=== PATIENT | female | born 1950 | race African-American/Black ===

== ENCOUNTER 2017-12-08 03:30 | Emergency (ER) | payer OTHER, MEDICAID ==
[~2017-12-08] VITALS: Ht 165.1 cm; Wt 49.0 kg
[2017-12-08] MEDS ORDERED: CLONIDINE 0.1MG TABLET PO ONE (07:15)
[2017-12-08 07:47] LABS: BASOPHILS % 0.5 % (0.0-2.0); EOSINOPHILS % 1.3 % (0.0-5.0); HEMOGLOBIN. 12.6 g/dL (12.0-16.0); LYMPHOCYTES % 24.3 % (20.0-50.0); MEAN CORPUSCULAR HEMOGLOBIN 31.5 pg (28.0-32.0); MEAN CORPUSCULAR VOLUME 92.5 fL (81.0-99.0); MEAN PLATELET VOLUME 7.4 fl (7.4-10.4); MONOCYTES % 7.4 % (2.0-8.0); NEUTROPHILS % 66.5 % (40.0-76.0); PLATELET 282 x1000/uL (130-400); RED CELL DISTRIBUTION WIDTH 14.1 % (11.6-14.6)
[2017-12-08 08:50] LABS: CHLORIDE 108 mEq/L (98-107); TROPONIN I < 0.02 ng/mL (0.00-0.04)
[2017-12-08 12:06] VITALS: BP 117/76
== END 2017-12-08 12:07 | disposition home or self-care (01) ==
LOC: ER 03:30
DX: I10 Essential (primary) hypertension (principal); I67.82 Cerebral ischemia
CPT/HCPCS: 36415; 70450; 71045; 80053; 83735; 84484; 85025; 93005; 99285